=== PATIENT | female | born 1950 | race Caucasian/White ===

== ENCOUNTER 2020-11-28 02:23 | Inpatient (IN) | payer OTHER ==
[~2020-11-28] VITALS: Ht 167.6 cm; Wt 81.2 kg
[2020-11-28 02:31] VITALS: BP 171/77
[2020-11-28] MEDS ORDERED: SPIRONOLACTONE100 M1 (02:36)
[2020-11-28] MEDS ORDERED: PAXIL 20 MG TAB20 M1 PO (02:36)
[2020-11-28 03:03] LABS: ABSOLUTE BASOPHILS 0.1 thou/uL (0.0-0.2); ABSOLUTE LYMPHOCYTES 1.8 thou/uL (0.8-5.3); ABSOLUTE MONOCYTES 0.8 thou/uL (0.0-1.2); ABSOLUTE NEUTROPHILS 12.5 thou/uL (1.6-8.1); BASOPHILS 0.4 %; EOSINOPHILS 0.2 %; HEMATOCRIT 40.4 % (37.0-47.0); HEMOGLOBIN 13.3 gm/dL (12.0-15.0); LYMPHOCYTES 11.9 %; MCH 30.1 pg (26.0-34.0); MCV 91.1 fL (80.0-100.0); MONOCYTES 5.1 %; MPV 7.9 fl. (7.2-11.1); NUCLEATED RBCS 0 /100WBC; PLATELET COUNT* 442 thou/uL (150-400); POLYS 82.4 %; RBC 4.43 mil/uL (4.20-5.00); RDW-CV 13.9 % (10.5-14.5); WBC 15.2 thou/uL (4.0-11.0)
[2020-11-28 03:08] LABS: CALCIUM 10.3 mg/dL (8.5-10.1); CREATININE 1.2 mg/dL (0.6-1.3); POTASSIUM 4.3 mmol/L (3.5-5.1)
[2020-11-28 03:18] LABS: ALBUMIN 4.9 g/dL (3.4-5.0); APTT 22.2 Seconds (25.0-31.3); PROTIME 10.2 Seconds (9.20-11.50); TOTAL BILIRUBIN 0.5 mg/dL (<0.1-1.0); TOTAL PROTEIN 8.8 g/dL (6.4-8.2)
[2020-11-28 06:42] VITALS: BP 149/55
[2020-11-28 06:45] VITALS: BP 133/67
[2020-11-28] MEDS ORDERED: VITAMIN D31250 MC1 PO (07:26)
[2020-11-28] MEDS ORDERED: HYDROXYZINE HCL10 M2 PO (07:27)
[2020-11-28 07:45] VITALS: BP 107/44
--- NOTE | 2020-11-28 11:25 | EKG ---
[place] [address] ELECTROCARDIOGRAM REPORT Name: CHARLIE SOSA Room: [address] IN [facility]#: [id number] Admission: 11/28/20 Attend Phys: Sammi Shelely, Discharge: Date of : 52 Date of Service: 11/28/20 0230 Report #: [id number] THIS REPORT FOR: //name// [facility] ED Test Date: 2020-11-28 Test Time: 02:30:02 Pat Name: CHARLIE SOSA Department: Room: Gender: F Battery St[employer]: [place] : 1950 Requested By: Sylvia Caraballo Order Number: [id number] MD: Stepan Ruiz Measurements Intervals [place] Rate: 66 P: 57 MA: 138 QRS: 48 QRSD: 109 T: -81 QT: 403 QTc: 423 Interpretive Statements Sinus rhythm Borderline repolarization abnormality No previous ECG available for comparison Electronically Signed On 11-28-2020 11:25:33 CDT by Stepan Ruiz [email or web address] <ELECTRONICALLY SIGNED> By: Stepan Ruiz MD, [facility] 11/28/20 1125 0230 0230 Stepan Ruiz MD, [facility] /EPI
--- NOTE | 2020-11-28 14:07 | NUR ---
Pt is A&O. Resides at home. Independent. No DME. No hx of HH or SNF. Goal is home at dc. Surgery following. No needs anticipated.
[2020-11-28 16:43] VITALS: BP 89/49
--- NOTE | 2020-11-28 18:26 | NUR ---
PT ALERT AND ORIENTED X 4. PT VERY ANXIOUS. STATES SHE HAS A HISTORY OF [facility] PT UP AD MATTHIAS. IV FLUIDS REMAIN INFUSING. PT HAD VISITORS THIS SHIFT. PLACEMENT CONFIRMED BY XRAY X 2. 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 INSTRUCTED TO LEAVE IT ALONE. RETAPED AT 1730. PT COMPLAINS OF ABDOMINAL PAIN AND NAUSEA AT TIMES. SMALL AMOUNT OF BROWN/SEROUS DRAINAGE NOTED. PT REMAINS NPO. LOW INTERMITTENT SUCTION. WILL CONTINUE TO MONITOR.
[2020-11-28 20:46] VITALS: BP 124/55
[2020-11-29 02:06] LABS: GLYCOHEMOGLOBIN (HGB A1C) 6.1 % (4.8-5.6)
--- NOTE | 2020-11-29 04:42 | NUR ---
PT A&OX4, ANXIOUS, VSS ON ROOM AIR. IV FLUIDS INFUSING ORDERED. NG TUBE IN PLACE TO LIS. PRN PAIN MEDS REQUESTED AND GIVEN ORDERED. PT UP WITH SBA. ASSESSMENTS AND HOURLY ROUNDINGS COMPLETE, WILL CONTINUE TO MONITOR.
[2020-11-29 04:56] LABS: ABSOLUTE EOSINOPHILS 0.1 thou/uL (0.0-0.7); ABSOLUTE LYMPHOCYTES 2.5 thou/uL (0.8-5.3); ABSOLUTE MONOCYTES 0.8 thou/uL (0.0-1.2); ABSOLUTE NEUTROPHILS 4.8 thou/uL (1.6-8.1); BASOPHILS 0.5 %; EOSINOPHILS 1.4 %; HEMATOCRIT 32.1 % (37.0-47.0); LYMPHOCYTES 30.4 %; MCH 30.6 pg (26.0-34.0); MCHC 32.9 g/dL (28.0-37.0); MCV 92.9 fL (80.0-100.0); MONOCYTES 9.9 %; MPV 7.5 fl. (7.2-11.1); NUCLEATED RBCS 0 /100WBC; POLYS 57.8 %; RBC 3.46 mil/uL (4.20-5.00); RDW-CV 14.2 % (10.5-14.5); WBC 8.3 thou/uL (4.0-11.0)
[2020-11-29 05:05] LABS: HEMOGLOBIN 10.6 gm/dL (12.0-15.0)
[2020-11-29 05:06] LABS: PLATELET COUNT* 322 thou/uL (150-400)
[2020-11-29 05:10] LABS: ALBUMIN 3.4 g/dL (3.4-5.0); CALCIUM 8.2 mg/dL (8.5-10.1); POTASSIUM 3.9 mmol/L (3.5-5.1); TOTAL BILIRUBIN 0.6 mg/dL (<0.1-1.0); TOTAL PROTEIN 5.8 g/dL (6.4-8.2)
[2020-11-29 08:12] VITALS: BP 98/50
--- NOTE | 2020-11-29 14:05 | NUR ---
Passing gas. Abd xray today. Anticipate dc tomorrow. No needs.
[2020-11-29 16:00] VITALS: BP 117/58
--- NOTE | 2020-11-29 17:55 | NUR ---
PATIENT HAS REMAINED A&OX4, PLEASANT AND COOPERATIVE WITH CARES THIS SHIFT. NG TUBE IN PLACE TO LIS, BROWN-DARK BROWN FLUID COLLECTING IN CONTAINER. PATIENT HAS HAD SEVERAL LIQUID STOOLS THIS SHIFT. IV FLUIDS AND PRN PAIN AND NAUSEA MEDICATIONS ADMINISTERED ORDERED. PATIENT IS UP AD MATTHIAS IN ROOM. CALL LIGHT WITHIN REACH.
[2020-11-29 19:45] VITALS: BP 108/55
[2020-11-30 03:47] LABS: HEMATOCRIT 30.8 % (37.0-47.0); HEMOGLOBIN 10.2 gm/dL (12.0-15.0); MCH 30.9 pg (26.0-34.0); MCHC 33.3 g/dL (28.0-37.0); MCV 92.9 fL (80.0-100.0); MPV 7.7 fl. (7.2-11.1); RBC 3.31 mil/uL (4.20-5.00); RDW-CV 13.9 % (10.5-14.5)
[2020-11-30 04:00] LABS: CALCIUM 8.1 mg/dL (8.5-10.1); CREATININE 0.9 mg/dL (0.6-1.3); POTASSIUM 3.2 mmol/L (3.5-5.1)
--- NOTE | 2020-11-30 05:51 | NUR ---
NG TUBE DC'D AT START OF SHIFT. TAKING CLEAR LIQUIDS WITHOUT N/V. INCONTINENT ONE LOOSE LIQUID BROWN BM OVERNIGHT, UP TO SHOWER. RFA SL. AM LABS. PT HOPEFUL FOR DISCHARGE HOME TODAY.
[2020-11-30 08:24] VITALS: BP 104/56
[2020-11-30 11:56] VITALS: BP 104/56
[2020-11-30 15:36] VITALS: BP 104/56
--- NOTE | 2020-11-30 15:38 | NUR ---
PATIENT HAS FELT "100% BETTER" SINCE LAST SHIFT, HAS TOLERATED REGULAR DIET WITH NO PAIN/N/V. PATIENT GIVEN DISCHARGE INSTRUCTIONS, IV REMOVED. PATIENT DENIES PAIN/QUESTIONS/CONCERNS PRIOR TO DISCHARGE. PATIENT LEFT UNIT WITH PERSONAL BELONGINGS VIA W/C AT APPROX. 1528 ACCOMPANIED BY NURSING STAFF AND SISTER.
== END 2020-11-30 15:28 | disposition home or self-care (01) | DRG 389 ==
LOC: M.ERS 02:23 → M.TBA-ER 05:14 → M.ORTHSURG 05:14
PROVIDERS: Family Medicine; Personal Emergency Response Attendant; Surgery; ADMIT Internal Medicine; ATTEND Internal Medicine
PROC: 0D9670Z Drainage of Stomach with Drainage Device, Via Natural or Artificial Opening (ICD-10-PCS; principal; 2020-11-29)
DX: K56.609 Unspecified intestinal obstruction, unspecified as to partial versus complete obstruction (principal); R71.0 Precipitous drop in hematocrit; Z90.710 Acquired absence of both cervix and uterus; Z90.49 Acquired absence of other specified parts of digestive tract; Z20.822 Contact with and (suspected) exposure to COVID-19